=== PATIENT | female | born 1980 | race Caucasian/White ===

== ENCOUNTER 2019-03-09 16:20 | Inpatient (IN) | payer BC ==
[~2019-03-09] VITALS: Ht 172.7 cm; Wt 82.3 kg
--- NOTE | 2019-03-09 16:10 | NUR ---
MABEL MAGALLANES presented to unit from Home, accompanied by family, with c/o CONTRACTIONS. MABEL MAGALLANES weighed, gowned, voided, and to bed. EFHM and TOCO applied, VS taken. MABEL MAGALLANES oriented to bed controls, call light, TV, heat, and A/C controls.
[2019-03-09 16:20] VITALS: BP 130/88
[~2019-03-09 16:20] MED LIST: ACHYD1T PO; DOCU100C37 PO; FAMO1TAB3 PO; IBP800T PO; IBUP-1780 PO; OXYC-465 PO; PREN1TAB71 PO
--- NOTE | 2019-03-09 16:27 | NUR ---
Dr. Funk notified of patient's arrival, complaints, and SVE. New orders received.
[2019-03-09] MEDS ORDERED: D5 LR IV SOLUTION 1,000 ML IV ONE (17:21)
[2019-03-09] MEDS ORDERED: D5 LR IV SOLUTION 1,000 ML IV SCH (17:46)
[2019-03-09 17:51] LABS: BASOPHILS % (AUTO) 0 % (0-10); EOSINOPHILS # (AUTO) 0.2 10^3/uL (0.0-0.3); EOSINOPHILS % (AUTO) 2 % (0-10); HEMATOCRIT 37 % (35-52); HEMOGLOBIN 12.4 G/DL (11.5-16.0); LYMPHOCYTES # (AUTO) 1.8 X 10^3 (1.0-4.0); LYMPHOCYTES % (AUTO) 19 % (12-44); MEAN CORPUSCULAR HEMOGLOBIN 31 PG (25-34); MEAN CORPUSCULAR HGB CONC 34 G/DL (32-36); MEAN CORPUSCULAR VOLUME 91 FL (80-99); MEAN PLATELET VOLUME 9.4 FL (7.4-10.4); MONOCYTES # (AUTO) 0.7 X 10^3 (0.0-1.0); MONOCYTES % (AUTO) 7 % (0-12); NEUTROPHILS # (AUTO) 6.8 X 10^3 (1.8-7.8); NEUTROPHILS % (AUTO) 71 % (42-75); PLATELET COUNT 235 10^3/uL (130-400); RED CELL DISTRIBUTION WIDTH 12.6 % (10.0-14.5); WHITE BLOOD COUNT 9.6 10^3/uL (4.3-11.0)
[2019-03-09 17:56] LABS: BILIRUBIN,URINE NEGATIVE (NEGATIVE); CLARITY,URINE CLEAR; COLOR,URINE YELLOW; GLUCOSE, URINE (UA) NEGATIVE (NEGATIVE); KETONES,URINE NEGATIVE (NEGATIVE); LEUKOCYTE ESTERASE ,URINE NEGATIVE (NEGATIVE); NITRITE,URINE NEGATIVE (NEGATIVE); PROTEIN,URINE NEGATIVE (NEGATIVE)
[2019-03-09 18:04] LABS: BACTERIA,URINE TRACE /HPF; SQUAMOUS EPITHELIAL CELL,UR RARE /HPF
--- NOTE | 2019-03-09 19:10 | NUR ---
Dr. Funk updated on patient's status. New orders received.
--- NOTE | 2019-03-09 19:15 | NUR ---
Report to Adele Sheikh RN.
[2019-03-09] MEDS ORDERED: LIDOCAINE/EPI 2% 1:200,00 (XYLOCAINE) 10 ML VIAL ONE (21:42)
[2019-03-09] MEDS ORDERED: OXYTOCIN/NORMAL SALINE 500 ML IV ONE (21:42)
[2019-03-09] MEDS ORDERED: CATHETER FLUSH 10 ML SYR IV SCH (22:00)
[2019-03-10] VITALS (13 sets, daily range): BP systolic 102–126; BP diastolic 68–82
--- NOTE | 2019-03-10 01:31 | History & Physical ---
History and Physical Date Seen by Provider: Mar 10, 2019 Time Seen by Provider: 01:26 This patient is a 37-year-old A1 white female with an EDC of March 04, 2019, putting her now at almost 41 weeks gestation. She was admitted with compl aint of contractions pain and pressure. She denies rupture membranes or bleeding areas she had a GBS culture done after 35 weeks gestation that was negative. She was seen in clinic on March 09, 2019 and was dilated right at 3 cm. She was 4/2 cm on presentation to labor and delivery. She has continued to make change with spontaneous labor. Allergies are none Medications are vitamins Medical social and surgical histories are per the antepartum records HEENT exam is normal Neck is supple no lymphadenopathy no thyromegaly Abdomen is gravid soft nontender nondistended Extreme show no clubbing or cyanosis. There is no Homans sign. Pelvic exam is deferred Laboratory Tests 03/09/19 16:53 Vital Signs Date Time Temp Pulse Resp B/P (MAP) Pulse Ox O2 Delivery O2 Flow Rate FiO2 03/09/19 22:30 36.6 03/09/19 21:00 36.6 03/09/19 20:00 36.6 03/09/19 19:00 36.6 03/09/19 18:16 36.2 03/09/19 16:20 36.5 87 18 100 Room Air 03/09/19 16:20 36.5 87 18 130/88 (102) 100 Room Air monitor shows a normal heart rate pattern with contractions about every 5 minutes Assessment and plan 40+ weeks' gestation in spontaneous labor. Patient had been making adequate progress. She has requested no Pitocin. Patient does understand that we would use Pitocin IV after delivery for insect ecbolic effect. Anticipation is for a vaginal delivery shortly 40+ weeks' gestation in spontaneous labor Allergies and Home Medications Allergies Coded Allergies: No Known Drug Allergies (Unverified , 02/10/13) Home Medications Vit/Fe Fumarate/Fa 1 Each Tablet, 1 EACH PO DAILY Prescribed by: JENNIFER SHUKLA on 02/10/13 8289 Patient Home Medication List Home Medication List Reviewed: Yes Clinical Quality Measures DVT/VTE Risk/Contraindication: Risk Factor Score Per Nursin RFS Level Per Nursing on Admit: 1=Low/No VTE PPX JENNIFER DUMONT MD Mar 10, 2019 01:31
[2019-03-10] MEDS ORDERED: OXYC1TAB87 PO (01:35)
[2019-03-10] MEDS ORDERED: DOCU-143 PO (01:35)
[2019-03-10] MEDS ORDERED: IBUP-1780 PO (01:35)
--- NOTE | 2019-03-10 01:36 | Discharge Instructions ---
Discharge Instructions Discharge Medications New, Converted or Re-Newed RX: RX on Chart Patient Instructions Return to The Hospital For: As directed Activity & Diet Discharge Diet: No Restrictions Activity as Tolerated: No Orders-Post D/C & Referrals Follow Up Appt: Call to make follow up appt. for patient in 4 weeks. Activity Per routine post vaginal delivery instructions. Please call in RX to patient pharmacy. Diet as tolerated Patient may shower or tub bathe as desired. JENNIFER DUMONT MD Mar 10, 2019 01:36
[2019-03-10] MEDS ORDERED: OXYTOCIN/NORMAL SALINE 500 ML IV SCH (02:47)
[2019-03-10] MEDS ORDERED: KETOROLAC 30 MG/ML VIAL IVP PRN (03:00)
[2019-03-10] MEDS ORDERED: MEASLES,MUMPS,RUBELLA 1 EA INJ SC ONE (03:00)
[2019-03-10] MEDS ORDERED: ONDANSETRON 4 MG/2 ML (SDV) Z0FRAN IVP PRN (03:00)
[2019-03-10] MEDS ORDERED: BENZOCAINE/MENTHOL (DERMOPLAST) 60 ML CAN TP PRN (03:00)
[2019-03-10] MEDS ORDERED: TETANUS,DIPTH,PERTUSS P/F (BOOSTRIX) 0.5 ML VIAL IM ONE (03:00)
[2019-03-10] MEDS ORDERED: oxyCODONE/APAP 5/325MG (PERCOCET 5) TABLET PO PRN (03:00)
--- NOTE | 2019-03-10 04:50 | NUR ---
pt up standby to bathroom, first void since delivery, pericare with assist per rn, to wc and tx to pp room 311,, oriented to call system and surroundings, info packet, pt set up for shower and in bathroom at this time. Asymptomatic and shows no ss distress. will cont to monitor. Denies needs at this time.
--- NOTE | 2019-03-10 06:05 | NUR ---
Pt refuses tordol administration at this time, ice diaper supplied. No further needs voiced, will cont to monitor.
--- NOTE | 2019-03-10 08:08 | Progress Note ---
Standard Progress Note Progress Notes/Assess & Plan Date Seen by a Provider: Mar 10, 2019 Time Seen by a Provider: 08:07 Progress/Assessment & Plan This patient is without complaint. She is ambulating, voiding, tolerating oral intake well. Vital Signs Date Time Temp Pulse Resp B/P (MAP) Pulse Ox O2 Delivery O2 Flow Rate FiO2 03/10/19 04:20 64 18 110/71 (84) Room Air 03/10/19 04:05 58 18 110/72 (85) Room Air 03/10/19 03:50 59 18 117/74 (88) Room Air 03/10/19 03:35 58 18 117/72 (87) Room Air 03/10/19 03:20 57 18 117/80 (92) Room Air 03/10/19 03:00 36.8 56 18 124/81 (95) Room Air 03/10/19 02:45 36.6 57 18 126/82 (97) Room Air 03/10/19 02:30 36.6 77 18 111/71 (84) Room Air 03/10/19 02:15 36.8 70 18 125/81 (96) Room Air 03/09/19 22:30 36.6 03/09/19 21:00 36.6 03/09/19 20:00 36.6 03/09/19 19:00 36.6 03/09/19 18:16 36.2 03/09/19 16:20 36.5 87 18 100 Room Air 03/09/19 16:20 36.5 87 18 130/88 (102) 100 Room Air Vital signs are stable. Patient is afebrile. The abdomen is benign. Extremities show no clubbing or cyanosis. There is no Homans sign. Assessment and plan status post TSVD at about 2 a.m. today doing well. Plan is for routine convalescence care JENNIFER DUMONT MD Mar 10, 2019 08:08
--- NOTE | 2019-03-10 08:50 | NUR ---
PT IN BED, OTHER CHILDREN AND S/O AT BEDSIDE. VS OBTAINED. PT REFUSES MEDICATIONS AT THIS TIME. ICE PK PROVIDED FOR PERINEUM. NO FURTHER NEEDS VOICED.
[2019-03-10] MEDS ORDERED: DOCUSATE SODIUM 100 MG (COLACE) CAP PO SCH (09:00)
--- NOTE | 2019-03-10 10:18 | NUR ---
PITOCIN COMPLETE. IV SALINE LOCKED. VISITORS REMAIN AT BEDSIDE.
--- NOTE | 2019-03-10 11:45 | NUR ---
PT RESTING IN BED, INITIAL SHIFT ASSESSMENT COMPLETED. PT DENIES ANY NEEDS OR QUESTIONS AT THIS TIME. S/O AT THE BEDSIDE. CALL LIGHT WITHIN REACH.
--- NOTE | 2019-03-10 13:20 | NUR ---
PT SITTING UP IN BED, EATING, VISITORS AT THE BEDSIDE. VS OBTAINED. NO NEEDS VOICED.
--- NOTE | 2019-03-10 17:20 | NUR ---
PT IN BED, DRESSED IN HER OWN CLOTHES. VS OBTAINED. VISITORS PRESENT. NO NEEDS VOICED AT THIS TIME.
[2019-03-10] MEDS: IBUPROFEN 800 MG (MOTRIN) TAB PO SCH (19:47)
--- NOTE | 2019-03-10 21:25 | NUR ---
Pt denies needs, refuses all medications at this time but aware pain management available to her upon request. will cont to monitor.
[2019-03-11 02:25] VITALS: BP 106/66
--- NOTE | 2019-03-11 07:40 | NUR ---
DR. DUMONT TO PT'S BEDSIDE.
--- NOTE | 2019-03-11 07:45 | Progress Note ---
Standard Progress Note Progress Notes/Assess & Plan Date Seen by a Provider: Mar 11, 2019 Time Seen by a Provider: 07:44 Progress/Assessment & Plan This patient is without complaint. She is ambulating, voiding, tolerating oral intake well. Vital Signs Date Time Temp Pulse Resp B/P (MAP) Pulse Ox O2 Delivery O2 Flow Rate FiO2 03/10/19 04:20 64 18 110/71 (84) Room Air 03/10/19 04:05 58 18 110/72 (85) Room Air 03/10/19 03:50 59 18 117/74 (88) Room Air 03/10/19 03:35 58 18 117/72 (87) Room Air 03/10/19 03:20 57 18 117/80 (92) Room Air 03/10/19 03:00 36.8 56 18 124/81 (95) Room Air 03/10/19 02:45 36.6 57 18 126/82 (97) Room Air 03/10/19 02:30 36.6 77 18 111/71 (84) Room Air 03/10/19 02:15 36.8 70 18 125/81 (96) Room Air 03/09/19 22:30 36.6 03/09/19 21:00 36.6 03/09/19 20:00 36.6 03/09/19 19:00 36.6 03/09/19 18:16 36.2 03/09/19 16:20 36.5 87 18 100 Room Air 03/09/19 16:20 36.5 87 18 130/88 (102) 100 Room Air Vital signs are stable. Patient is afebrile. The abdomen is benign. Extremities show no clubbing or cyanosis. There is no Homans sign. Assessment and plan status post TSVD at about 2 a.m. today doing well. Plan is for routine convalescence care March 11, 2019 This patient is without complaint. She is ambulating, voiding, tolerating oral intake well has good pain control. Vital Signs Date Time Temp Pulse Resp B/P (MAP) Pulse Ox O2 Delivery O2 Flow Rate FiO2 03/11/19 02:25 36.9 56 18 106/66 (79) 97 Room Air 03/10/19 19:42 37.5 78 18 123/79 (94) 97 Room Air 03/10/19 17:20 37.1 68 18 122/76 (91) 97 Room Air 03/10/19 13:20 36.9 70 18 111/69 (83) 96 Room Air 03/10/19 08:49 36.9 56 18 102/68 (79) 97 Room Air Vital signs are stable. Patient is afebrile. Fundus is firm below the umbilicus and nontender. Extremities show no clubbing or cyanosis. There is no Homans sign. Assessment and plan day number 1 status post term spontaneous vaginal delivery at 40+ weeks gestation. Patient is doing well and will have routine convalescence care Final Diagnosis 40+ week spontaneous vaginal delivery JENNIFER DUMONT MD Mar 11, 2019 07:45
[2019-03-11 09:38] VITALS: BP 117/74
--- NOTE | 2019-03-11 09:40 | NUR ---
PT IN BED, VS OBTAINED, INITIAL SHIFT ASSESSMENT COMPLETED; SEE INTERVENTION FOR FURTHER. S/O @ THE BEDSIDE. PT CONTINUES TO REFUSE ALL MEDICATIONS. NO NEEDS OR QUESTIONS VOICED. PLAN TO DISCHARGE THIS EVENING PER PT REQUEST. FRESH ICE WATER PROVIDED.
--- NOTE | 2019-03-11 13:00 | NUR ---
PT IN BED, FAMILY AT THE BEDSIDE. NO NEEDS VOICED.
[2019-03-11 15:20] VITALS: BP 129/80
--- NOTE | 2019-03-11 17:47 | NUR ---
S/O AND PT EATING STORK MEAL AND THEN PLAN TO DISCHARGE AFTERWARDS.
--- NOTE | 2019-03-11 18:52 | NUR ---
DISCHARGE PAPERS PROVIDED AND REVIEWED WITH PT, PT VERBALIZES UNDERSTANDING AND DENIES ANY NEEDS OR QUESTIONS AT THIS TIME. PAPER SIGNED. RX ALSO PROVIDED AT THIS TIME.
--- NOTE | 2019-03-11 19:50 | NUR ---
PT DISCHARGED FROM -311 TO PERSONAL AUTO VIA AMBULATORY IN STABLE CONDITION ACC BY S/O AND Adele LANDIN RN.
--- NOTE | 2019-03-19 16:50 | OPERATIVE REPORT ---
DATE OF SERVICE: 03/10/2019 The patient delivered by term spontaneous vaginal delivery a viable female infant with Apgars of 8 and 9 at 5 minutes respectively. Weight 8 pounds 6 ounces, time of 02:07. Cord blood pH of 7.32. The delivery was accomplished over an intact perineum under no analgesia. The infant was bulb suctioned on delivery of the head and again on completion of delivery. Umbilical cord relatively pulseless was doubly clamped, father cut the cord, the baby was passed to mom's abdomen. The placenta delivered fairly promptly spontaneously Rhoades. It was normal with a 3-vessel cord. The cervix, vagina, rectum, and perineum were examined and found intact, except for some very minimal superficial abrasions. Correct sponge and needle counts were correct on completion of the delivery and the post-delivery exam. Estimated blood loss was around 150 mL. The patient tolerated the delivery well and remained in the LDR. The baby remained with mom. Job ID: [id number] DocumentID: [id number] Dictated Date: 03/19/2019 13:10:18 [employer] [place] Date: 03/19/2019 16:48:49 Dictated By: JENNIFER DUMONT MD MTDD
== END 2019-03-11 19:50 | disposition home or self-care (01) | DRG 807 ==
LOC: LDRP 16:20
PROVIDERS: ADMIT Obstetrics & Gynecology; ATTEND Obstetrics & Gynecology
PROC: 10E0XZZ Delivery of Products of Conception, External Approach (ICD-10-PCS; principal; 2019-03-09)
DX: O48.0 Post-term pregnancy (principal); O71.82 Other specified trauma to perineum and vulva; Z3A.40 40 weeks gestation of pregnancy; Z37.0 Single live birth
CPT/HCPCS: 36415; 81000; 85025; 86850; 86900; 86901; 88307; 99212

== ENCOUNTER → 2021-04-01 | Outpatient (CLI) | payer BC ==
[~2021-04-01] MED LIST changes: +DOCU-143 PO; -OXYC-465 PO; +OXYC-556 PO; +OXYC1TAB87 PO
== END ==
LOC: LAB 17:28
PROVIDERS: ATTEND Nurse Practitioner Family
DX: M79.89 Other specified soft tissue disorders (principal); R23.0 Cyanosis; R23.3 Spontaneous ecchymoses
CPT/HCPCS: 36415; 85379

== ENCOUNTER → 2021-04-03 | Outpatient (CLI) | payer BC ==
--- NOTE | 2021-04-03 11:29 | Diagnostic Imaging Report ---
PROCEDURE: US left lower extremity venous. TECHNIQUE: Multiple real-time grayscale images were obtained over the left lower extremity in various projections. Additional duplex Doppler and color Doppler images were also obtained. INDICATION: Elevated D-dimer and left foot pain. There is no evidence of left lower extremity DVT. Left lower extremity deep venous system shows normal compressibility with normal response to augmentation and Valsalva. No fluid collection or mass is detected. IMPRESSION: No evidence of left lower extremity DVT. Dictated by: Dictated on workstation # [id number]
== END ==
LOC: RAD 10:15
PROVIDERS: ATTEND Nurse Practitioner Family
DX: M79.672 Pain in left foot (principal); R23.0 Cyanosis; R20.2 Paresthesia of skin; R79.1 Abnormal coagulation profile

== ENCOUNTER → 2022-01-26 | Outpatient (CLI) | payer BC ==
[~2022-01-26] MED LIST changes: -FAMO1TAB3 PO; +FAMO1TAB4 PO
--- NOTE | 2022-01-26 14:32 | Diagnostic Imaging Report ---
Indication: Routine screening. No prior mammograms are available for comparison. This is a baseline study. 2-D and 3-D bilateral screening mammography was performed with CAD. Both breasts are heterogeneously dense, limiting the sensitivity of mammography. There is a cluster of calcifications in the upper central right breast. Additional views are recommended. Left breast is unremarkable. No mass is identified. Axillae are unremarkable. IMPRESSION: BI-RADS 0 Right breast calcifications. Additional views are recommended for further evaluation. ACR BI-RADS Category 0: Incomplete. (Needs additional imaging evaluation). Result letter will be mailed to the patient. Note: At least 10% of breast cancer is not imaged by mammography. Dictated by: Dictated on workstation # [id number]
== END ==
LOC: RAD 10:00
PROVIDERS: ATTEND Family Medicine
DX: Z12.31 Encounter for screening mammogram for malignant neoplasm of breast (principal); R92.1 Mammographic calcification found on diagnostic imaging of breast
CPT/HCPCS: 77063; 77067

== ENCOUNTER → 2022-01-31 | Outpatient (CLI) | payer BC ==
--- NOTE | 2022-01-31 17:19 | Diagnostic Imaging Report ---
INDICATION: Right breast calcifications. Patient presents for additional views. COMPARISON: Correlation is made with the recent baseline mammogram from 01/26/2022. EXAMINATION: Unilateral right 2D and 3D diagnostic mammography with CAD was performed. This included magnification CC and ML views as well as conventional 90 degree lateral views. The current study was also evaluated with a Computer Aided Detection (CAD) system. FINDINGS: There is a cluster of indeterminate microcalcifications in the central right breast. These appear to be superiorly located on the MLO view. No associated soft tissue mass is identified. IMPRESSION: Indeterminate cluster of microcalcifications in the upper central right breast. Tissue sampling is recommended. These would be amenable to stereotactic biopsy approach. ACR BI-RADS Category 4: Suspicious abnormality. Result letter will be mailed to the patient. Note: At least 10% of breast cancer is not imaged by mammography. Dictated by: Dictated on workstation # [id number]
== END ==
LOC: RAD 13:35
PROVIDERS: ATTEND Family Medicine
DX: R92.1 Mammographic calcification found on diagnostic imaging of breast (principal)
CPT/HCPCS: 77065; G0279

== ENCOUNTER → 2022-02-07 | Outpatient (CLI) | payer BC ==
[~2022-02-07] VITALS: Ht 172.7 cm; Wt 72.7 kg
[~2022-02-07] MED LIST changes: +LIDOCAINE 1% INJ 30 ML (XYLOCAINE) VIAL INJ ONE
--- NOTE | 2022-02-07 15:25 | Diagnostic Imaging Report ---
INDICATION: Right breast calcifications. EXAMINATION: Patient presents for stereotactic biopsy. PROCEDURE: Patient was brought to stereotactic suite and placed in a sitting upright position. The right breast was positioned craniocaudal. The calcifications in the upper portion of the central right breast were stereotactically targeted. All images were viewed on a dedicated workstation. The superior right breast was prepped and draped in the usual sterile fashion. Small amount of 1% lidocaine was utilized for local anesthesia. The 8 gauge vacuum-assisted needle was advanced from a craniocaudal approach and placed per stereotactic coordinates. A total of 4 core biopsies were obtained with the 8 gauge vacuum-assisted device. Specimen radiograph does show numerous calcifications within samples labeled #2, 3 and 4. A marker clip was then employed. The needle was removed and hemostasis was obtained using manual compression. Follow-up 2D, CC and ML mammography was obtained demonstrating the marker clip in the upper central right breast. Patient tolerated the procedure well and left the Department in stable condition. IMPRESSION: Successful stereotactic biopsy of right breast calcifications utilizing the vacuum-assisted device. Pathology results are currently pending. Dictated by: Dictated on workstation # [id number]
== END ==
LOC: RAD 13:15
PROVIDERS: ATTEND Family Medicine
DX: R92.1 Mammographic calcification found on diagnostic imaging of breast (principal)
CPT/HCPCS: 19081; A4648

== ENCOUNTER 2022-02-21 13:34 | Outpatient (RCR) | payer BC ==
[~2022-02-21 13:34] MED LIST changes: -LIDOCAINE 1% INJ 30 ML (XYLOCAINE) VIAL INJ ONE
[2022-03-01] MEDS ORDERED: MULT-1136 PO (10:50)
[2022-03-01] MEDS ORDERED: [UNRECOGNIZED DRUG - REMARK] PO (10:50)
[2022-03-01] MEDS ORDERED: VITAMIN B2 (10:50)
[2022-03-01] MEDS ORDERED: MAGN120C2 PO (10:50)
== END 2022-02-24 | disposition home or self-care (01) ==
LOC: ONC 13:34
PROVIDERS: ATTEND Internal Medicine Hematology & Oncology
DX: N60.89 Other benign mammary dysplasias of unspecified breast (principal)
CPT/HCPCS: 99204

== ENCOUNTER → 2022-03-01 | Outpatient (CLI) | payer BC ==
[~2022-03-01] VITALS: Ht 172.7 cm; Wt 77.2 kg
[~2022-03-01] MED LIST changes: +MAGN120C2 PO; +MULT-1136 PO; +VITAMIN B2; +[UNRECOGNIZED DRUG - REMARK] PO
== END | disposition home or self-care (01) ==
LOC: PREOP 05:30
PROVIDERS: ATTEND Surgery
DX: Z01.818 Encounter for other preprocedural examination (principal)

== ENCOUNTER 2022-03-07 05:55 | Day surgery (SDC) | payer BC ==
[2022-03-07] VITALS (10 sets, daily range): BP systolic 78–128; BP diastolic 60–85
[~2022-03-07] VITALS: Ht 172 cm; Wt 77.2 kg
[2022-03-07] MEDS ORDERED: LACTATED RINGERS 1,000 ML IV PRN (06:15)
[2022-03-07] MEDS ORDERED: ceFAZolin INJECTION 2,000 MG in NS (IVPB) 50 ML IV ONE (06:15)
[2022-03-07] MEDS ORDERED: ONDANSETRON 4 MG/2 ML (SDV) Z0FRAN ONE (07:02)
[2022-03-07] MEDS ORDERED: LIDOCAINE PF 2% 5 ML (XYLOCAINE) VIAL ONE (07:02)
[2022-03-07] MEDS ORDERED: fentaNYL INJ 100 MCG/2 ML AMP ONE (07:02)
[2022-03-07] MEDS ORDERED: MIDAZOLAM 2 MG/2 ML (VERSED) VIAL ONE (07:02)
[2022-03-07] MEDS ORDERED: proPOfol 200 MG/20 ML (DIPRIVAN) VIAL IV ONE (07:02)
[2022-03-07] MEDS ORDERED: LIDOCAINE 1% INJ 30 ML (XYLOCAINE) VIAL INJ ONE (08:15)
[2022-03-07] MEDS ORDERED: BUP/EPI 0.25% 1:200,000 (MARCAINE) 30 ML VIAL ONE (08:50)
--- NOTE | 2022-03-07 10:15 | Progress Note-Pre Operative ---
Pre-Operative Progress Note Date of Available H&P: Feb 22, 2022 Date H&P Reviewed: Mar 07, 2022 Time H&P Reviewed: 09:55 History & Physical: H&P Reviewed, Patient Examed, No changes noted Pre-Operative Diagnosis: right breast calcifications, site marked KARISSA CHAN DO Mar 07, 2022 10:15
[2022-03-07] MEDS ORDERED: SEVOFLURANE (ULTANE) 15 ML INHAL SOLN ONE (10:46)
[2022-03-07] MEDS ORDERED: ACHD5005 PO (10:48)
--- NOTE | 2022-03-07 10:48 | Progress Note-Post Operative ---
Post-Operative Progess Note Surgeon (s)/Cinder Crusher Operator (s) Surgeon KARISSA CHAN DO Cinder Crusher Operator: TAMMY Barron Pre-Operative Diagnosis right breast calcifications, site marked Post-Operative Diagnosis same pending path Procedure & Operative Findings Date of Procedure 03/07/22 Procedure Performed/Findings Right breast lumpectomy with needle localization Anesthesia Type LMA Estimated Blood Loss Estimated blood loss (mL): less than 5ml Specimens/Packing Specimens Removed right breast tissue and needle KARISSA CHAN DO Mar 07, 2022 10:48
--- NOTE | 2022-03-07 10:50 | Discharge Inst-Surgical ---
Discharge Inst-Surgical Depart Medication/Instructions New, Converted or Re-Newed RX: Transmitted to Pharmacy Patient Instructions Follow up Appt: Make appointment for 1 week. [phone] Instructions: No lifting greater than 20 pounds. No strenuous activity. May shower in 24 hours, no tub bath or soaking. Use incentive spirometer at home as directed. No Smoking Skin/Wound Care: May remove bandages in am. You need to leave the Dermabond on incision it will fall off on it's own. Symptoms to Report: Appetite Changes, Extremity Discoloration, Numbness/Tingling, Swelling Increased, Bleeding Excessive, Eyesight Changes, Pain Increased, Urine Color Change, Constipation(Persistent), Fever over 101 degree F, Pain/Pressure in chest, Urinating Difficulty, Cough Up/Vomit Blood, Heart Beat Irreg/Pounding, Pain/Pressure in jaw, Cramps in feet or legs, Lightheadedness, Pain/Pressure in shoulder, Diarrhea(Persistent), Memory Changes Suddenly, Questions/Concerns, Weight gain consecutive days, Dizziness/Fainting, Nausea/Vomiting, Shortness of Breath, Weight gain over 2 pounds If questions or concerns contact your physician Or seek help at emergency department. Activity Activity as Tolerated: Yes Activity Instructions: Avoid Stress to Incision Driving Instructions: No Driving/Refer to Dr. Hoff Discharge Diet: No Restrictions Diet After 24 Hours: Clear Liquid if Nauseous If Any Problems/Questions/Issu: Contact Your Physician, Go to Emergency Room Skin/Wound Care Infection Signs and Symptoms: Increased Redness, Foul Odor of Wound, Increased Drainage, Skin Itchy or Has a Rash, Increased Swelling, Temperature Above 101 F Wound Care Comment: wear tight fitting bra for a week, 24 hours per day except to shower Bathing Instructions: Shower Stitches/[place]/Dermabond Dis: Dermabond KARISSA CHAN DO Mar 07, 2022 10:50
[2022-03-07] MEDS ORDERED: ONDANSETRON 4 MG/2 ML (SDV) Z0FRAN IVP PRN (11:00)
[2022-03-07] MEDS ORDERED: morphine INJ 10 MG/ML 1ML (SYR OR VIAL) IVP ONE (11:00)
--- NOTE | 2022-03-07 11:01 | Diagnostic Imaging Report ---
INDICATION: Status post right lumpectomy following hookwire localization. Specimen radiograph was submitted. A specimen does contain a hookwire as well as small calcification adjacent to the hook wire and the localizer clip from previous stereotactic biopsy. IMPRESSION: Specimen radiograph, as described. Dictated by: Dictated on workstation # [id number]
--- NOTE | 2022-03-07 11:27 | Diagnostic Imaging Report ---
INDICATION: Apocrine metaplasia. Patient presents for hookwire localization prior to lumpectomy. Patient was brought to the mammographic suite and placed in the chair in the sitting upright position. The right breast was positioned craniocaudal. The localizer clip in the central right breast was stereotactically targeted. Superior breast was then prepped and draped in a usual sterile fashion. Small amount of 1% lidocaine was utilized for local anesthesia. A localizing needle was advanced and placed per appropriate coordinates. The hookwire was then placed through the localizer needle and deployed. The needle was removed. The wire was affixed to the patient's skin. 2-D CC and ML mammography demonstrates good position of the hookwire adjacent to the localizer clip and a small calcification. IMPRESSION: Successful right breast hookwire localization, as described. Dictated by: Dictated on workstation # [id number]
--- NOTE | 2022-03-07 12:19 | Anesthesia-General Post-Op ---
General Patient Condition Mental Status/LOC: Same as Preop Cardiovascular: Satisfactory Nausea/Vomiting: Absent Respiratory: Satisfactory Pain: Controlled Complications: Absent Post Op Complications Complications None Follow Up Care/Instructions Patient Instructions None needed. Anesthesia/Patient Condition Patient Condition Patient is doing well, no complaints, stable vital signs, no apparent adverse anesthesia problems. No complications reported per nursing. MAHSA LOPEZ CRNA Mar 07, 2022 12:19
--- NOTE | 2022-03-08 00:11 | OPERATIVE REPORT ---
DATE OF SERVICE: 03/07/2022 PREOPERATIVE DIAGNOSIS: Right breast calcifications, BI-RADS category 3. POSTOPERATIVE DIAGNOSIS: Right breast calcifications BI-RADS category 3, pending pathology. PROCEDURE: Right breast lumpectomy with needle localization. SURGEON: Patrice Salgado DO SURVEYING CREW STAKE RUNNER: HALEIGH Barron. ANESTHESIA: LMA. ESTIMATED BLOOD LOSS: Less than 5 mL FLUIDS: Per anesthesia. SPECIMENS: Right breast and needle. 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 She had had previous needle biopsy. She was first sent to radiology to have a needle localization performed. She then came to the operating room. Her site had been marked. She was sterilely prepped and draped in the normal fashion. Local lidocaine used to infiltrate the skin over where the needle was and then around and a regional block made a curvilinear incision directly at the needle with a #15 blade, carried down through the skin into the subcutaneous tissue, the deep and subcutaneous tissue Bovie electrocautery, creating flaps superiorly and inferiorly and going down around this needle going all the way down to get to the base of the needle. It was actually on the pectoralis major muscle. So, this was a large specimen, able to get it completely out with the needle intact, sutured once at the base and then once at the 6 o'clock position, sent this to radiology. Radiology did a specimen mammogram, which confirmed that the needle, the clip and the calcifications were in the specimen. The area was copiously irrigated with sterile water. Hemostasis was obtained using electrocautery. We then closed the skin with 4-0 undyed Monocryl 3 interrupted subcuticular stitches. The area was cleaned and dried. Dermabond placed as well as pressure and fluff dressing. The patient tolerated the procedure. Sponge and needle count correct at the end of the case. Job ID: [id number] DocumentID: [id number] Dictated Date: 03/07/2022 13:50:15 Zinc Plater Date: 03/08/2022 00:10:00 Dictated By: PATRICE SALGADO DO
== END 2022-03-07 13:00 | disposition home or self-care (01) ==
LOC: CARD 05:55
PROVIDERS: ATTEND Surgery
DX: N60.91 Unspecified benign mammary dysplasia of right breast (principal)
CPT/HCPCS: 19281; 19301; 76098; 84703; 87081; A4648

== ENCOUNTER 2022-04-17 13:52 | Outpatient (RCR) | payer BC ==
[~2022-04-17 13:52] MED LIST changes: +ACHD5005 PO
== END 2022-04-24 | disposition home or self-care (01) ==
LOC: ONC 13:52
PROVIDERS: ATTEND Internal Medicine Hematology & Oncology
DX: N60.89 Other benign mammary dysplasias of unspecified breast (principal)